=== PATIENT | female | born 1960 | race Caucasian/White ===

== ENCOUNTER → 2021-03-03 | Day surgery (SDC) | payer SELFPAY ==
[~2021-03-03] VITALS: Ht 162.6 cm; Wt 48.5 kg
[~2021-03-03] MED LIST: ACULAR 10 ML10 ML OU; ALPHAGAN OPHTH D5 ML OU; ASACOL HD800 MG PO; SYNTHROID0.075 MG/T PO; XALATAN EYE DROPS OU
[2021-03-03 06:39] VITALS: BP 109/82; PULSE 73; TEMP 97.9
[2021-03-03 07:55] VITALS: BP 100/70; PULSE 54; TEMP 97.5
--- NOTE | 2021-03-03 07:55 | NUR ---
PATIENT BROUGHT BACK TO BAY [facility] VIA CART, AMBULATED TO CHAIR WITHOUT DIFFICULTY. PATIENT IS ALERT AND ORIENTED, PLACED ON MONITORS, STABLE. AT BEDSIDE TO BRING PATIENT HOME. REPORT RECIEVED FROM ROSA CHINCHILLA. DENIES PAIN OR NAUSEA. REQUESTS JUICE AND A MUFFIN. CALL HOOKER WITHIN REACH, WILL CONTINUE TO MONITOR.
[2021-03-03 08:10] VITALS: BP 96/70; PULSE 63
--- NOTE | 2021-03-03 08:18 | NUR ---
TOLERATING FOOD AND DRINK WITHOUT DIFFICULTY. VITAL SIGNS STABLE. WILL MONITOR.
[2021-03-03 08:25] VITALS: BP 103/68; PULSE 68
--- NOTE | 2021-03-03 08:25 | NUR ---
PATIENT STATES SHE FEELS READY TO GO HOME AT THIS TIME. VITALS STABLE. IV REMOVED, INTACT. PATIENT TO GET DRESSED AT THIS TIME.
--- NOTE | 2021-03-03 08:55 | NUR ---
DISCHARGE INSTRUCTIONS REVIEWED WITH PATIENT AND . ALL QUESTIONS ANSWERED. PATIENT BROUGHT DOWN VIA WHEEL CHAIR. TO BE DRIVEN HOME BY , ALL BELONGINGS IN HAND.
== END ==
LOC: SDCO 06:18
DX: D12.2 Benign neoplasm of ascending colon (principal); D12.4 Benign neoplasm of descending colon; D12.5 Benign neoplasm of sigmoid colon; K64.0 First degree hemorrhoids; K63.89 Other specified diseases of intestine; R19.7 Diarrhea, unspecified; K92.1 Melena; K51.90 Ulcerative colitis, unspecified, without complications; Z79.52 Long term (current) use of systemic steroids; Z79.899 Other long term (current) drug therapy; Z79.890 Hormone replacement therapy; Z20.822 Contact with and (suspected) exposure to COVID-19
CPT/HCPCS: J2704; J7030